=== PATIENT | male | born 1960 | race Caucasian/White ===

== ENCOUNTER 2024-10-24 03:45 | Inpatient (IN) ==
[2024-10-24 05:12] LABS: Albumin Globulin Ratio 1.5 (0.9-2); Albumin Level 3.9 gm/dl (3.4-5.0); BUN Creatinine Ratio 11.6 (10-20); Bilirubin,Total 0.6 mg/dl (0.2-1.0); Calcium 8.6 mg/dl (8.6-10.3); Creatinine Clr Calc Pharmacy 69.8 ml/min; Globulin 2.6 gm/dl (2.5-4.0); Potassium 4.4 mmol/L (3.5-5.1)
[2024-10-24 05:45] LABS: Fibrinogen 261 mg/dl (184-400); Partial Thromboplastin Time 26 Seconds (21-31); Prothrombin Time 10.9 Seconds (9.0-12.0)
[2024-10-24 05:47] LABS: Hematocrit (blood only) 37.2 % (42.0-52.0); Hemoglobin 12.5 g/dl (14.0-18.0); Mean Corpuscular Hemoglobin 28.5 pg (25.0-34.0); Mean Corpuscular Hgb Conc 33.6 g/dL (32.0-36.0); Mean Corpuscular Volume 84.9 fL (80.0-100.0); Platelet Count 1 K/uL (130-400); RDW Coefficient of Variation 14.5 % (11.5-14.5); RDW Standard Deviation 45.1 fL (36.4-46.3); Red Blood Count 4.38 M/uL (4.70-6.10); White Blood Count 4.49 K/ul (4.8-10.8)
[2024-10-24 06:03] LABS: Basophils # (auto) 0.06 K/uL (0.00-0.20); Basophils % (auto) 1.3 %; Eosinophils # (auto) 0.44 K/uL (0.00-0.50); Eosinophils % (auto) 9.8 %; Immature Granulocytes # (auto) 0.01 K/uL (0.01-0.20); Immature Granulocytes % (auto) 0.2 %; Lymphocytes # (auto) 0.71 K/uL (1.20-3.40); Lymphocytes % (auto) 15.8 %; Monocytes # (auto) 0.59 K/uL (0.11-0.59); Monocytes % (auto) 13.1 %; Neutrophils # (auto) 2.68 K/uL (1.40-6.50); Neutrophils % (auto) 59.8 %; Platelet Estimate Signific. Decreased (Normal); RBC Morphology Unremarkable
[2024-10-24 06:13] LABS: Magnesium 1.5 mg/dl (1.7-2.4); Total Protein 6.5 gm/dl (6.0-8.3); Troponin I High Sensitivity 7.4 pg/ml (0-20)
--- NOTE | 2024-10-24 06:55 | History & Physical Report ---
Date of Service October 24, 2024 Assessment & Plan (1) Thrombocytopenia: (2) Pancytopenia: (3) Diabetes mellitus: (4) Factor V Leiden mutation: (5) COPD (chronic obstructive pulmonary disease): (6) Benign prostatic hyperplasia (BPH) with urinary urgency: Plan 64yo male with history of Factor V Leiden on Apixaban anticoagulation, DM, COPD and BPH presenting with 4 days of progressive petechial rash and purpuric lesions in mouth with mucosal bleeding. Patient with pancytopenia - WBC=4.49, Hgb=12.5, Hct=37.2 normochromic/normocytic and Platelets = 1. No recent illness or vaccinations. He does take Omeprazole and was recently started on Ozempic. Patient with documented history of Lupus but denies having this. Differential diagnosis to include auto-immune disorder, ITP, tick-borne illness, medication effects, malignancy. #Thrombocytopenia - Platelets=1, mucosal bleeding -Admit to medical -Obtain peripheral blood smear -Obtain QUIRINO with reflex pattern. Consider adding complement levels, ESR, CRP if Lupus suspected -Hematology consultation appreciated -Patient has been consented for transfusion, no products ordered at this time #Pancytopenia - patient with leukopenia and anemia as well -Peripheral smear -Hematology consultation appreciated #Diabetes - blood sugar presently 127. Patient is on Metformin as well as Ozempic recently started to aid weight loss -Hold Metformin and Ozempic -Lantus 7u BID with ISS #Factor V Leiden - patient on Apixaban anticoagulation -Hold Apixaban for now given increased bleeding risk with thrombocytopenia #COPD - no cough, SOB or wheeze -Continue Trelegy daily #BPH - chronic -Flomax 0.4mg po daily F/E/N - Saline lock, Mg repletion x 2gm IV ordered, CC diet as tolerated Ppx - SCDs Code - Full Dispo - Admit to medical for ongoing workup and treatment History of Present Illness Chief Complaint: rash Primary Care Provider: Brandon Oakes Twin Reyes is a 64yo male with history of ulcerative colitis, remote history of colon cancer s/p surgery, prior PE and Factor V Leiden on Eliquis anticoagulation presenting with petechial rash that began 4 days ago. He noted petechia which began on bilateral ankles and progressed up his legs, thighs and onto his back and abdomen. Also with purpura in his mouth on tongue with mucosal bleeding. Patient additionally complaining of fatigue and chills. He had a small amount of bright red blood in his stool. Otherwise he denies fever, headache, chest pain, palpitations, cough, SOB, abdominal pain, nausea, vomiting, diarrhea. Denies recent illness, flu-like symptoms, tick bites. No recent hospitalizations or exposure to heparin or heparin products. Aside from his Factor V Leiden mutation, no personal or familial history of thrombocytopenia or blood disorders. He has a diagnosis of Lupus on his chart but denies having this. No additional complaints at this time. In the ER patient is afebrile, HD stable, non-toxic in appearance Allergies Allergy/AdvReac Type Severity Reaction Status Date / Time Cipro Allergy Intermediate renal Verified 05/05/16 19:12 failure ciprofloxacin Allergy Intermediate renal Verified 04/17/21 09:29 failure metronidazole Allergy Intermediate renal Verified 04/17/21 09:29 failure Flagyl TABS Allergy Uncoded 04/17/21 09:29 Home Medications Medication Instructions Recorded Confirmed Type albuterol sulfate 1.25 mg/3 mL mg inhalation 08/17/19 04/17/21 History solution for nebulization apixaban 5 mg tablet 5 mg PO DAILY 08/17/19 10/24/24 History beclomethasone dipropionate 40 1 puffs inhalation BID 08/17/19 04/17/21 History mcg/actuation HFA breath activated aerosol (Qvar RediHaler) ipratropium 0.5 mg-albuterol 3 mg ml inhalation 08/17/19 04/17/21 History (2.5 mg base)/3 mL nebulization soln losartan 25 mg tablet 25 mg PO DAILY 08/17/19 10/24/24 History metformin 500 mg tablet 500 mg PO DAILY 08/17/19 10/24/24 History mometasone-formoterol HFA 200 inhalation 08/17/19 04/17/21 History mcg-5 mcg/actuation aerosol inhaler montelukast 10 mg tablet 10 mg PO DAILY 08/17/19 10/24/24 History omeprazole 40 mg capsule,delayed 40 mg PO DAILY 08/17/19 10/24/24 History release tamsulosin 0.4 mg capsule 0.4 mg PO DAILY #90 caps 04/17/21 10/24/24 Rx fluticasone fur. 100 mcg-umeclid 1 inh inhalation DAILY 10/24/24 10/24/24 History 62.5 mcg-vilant 25 mcg inhalat.powder (Trelegy Ellipta) semaglutide 0.25 mg or 0.5 mg (2 0.5 mg subcut WK 10/24/24 10/24/24 History mg/3 mL) subcutaneous pen injector (Ozempic) trazodone 50 mg tablet 50 mg PO HS PRN Insomnia 10/24/24 10/24/24 History Past Med/Surg History Problem List (Updated 10/24/24 @ 06:45 by Henny Chung DO) Thrombocytopenia Pancytopenia Benign prostatic hyperplasia (BPH) with urinary urgency Asthma (Acute) Cough (Acute) DVT (deep venous thrombosis) (Acute) Diabetes mellitus (Acute) Elevated PSA (Acute) Factor V Leiden mutation (Acute) GERD (gastroesophageal reflux disease) (Acute) Left ventricular dysfunction (Acute) Lupus (Acute) Pulmonary embolism (Acute) Restless legs syndrome (Acute) Wheezing (Acute) COPD exacerbation (Acute) COPD (chronic obstructive pulmonary disease) (Chronic) Medical History (Updated 10/24/24 @ 06:45 by Henny Chung DO) Ulcerative colitis Myocardial infarction Colon cancer Kidney disease Surgical History History of knee surgery History of surgery "ileal pouch-anal anastomosis" Hx of cholecystectomy Hx of colonoscopy History of colon surgery Family History Other No pertinent family history Social History Smoking Status: Never smoker Tobacco Type: Smokeless Tobacco (Dip or Chew) Hx Alcohol Use: Yes Preferred Language: Lithuanian marital status: Feels Safe at Home: Yes Review of Systems Review of Systems: All systems reviewed & are unremarkable except as noted in HPI & below Physical Exam Physical Exam: General: patient resting comfortably, NAD, non-toxic in appearance, AA&O x 4 Skin: warm, dry, intact, petechial rash on bilateral LE, thighs and trunk HEENT: NC/AT, PERRL, EOMI, anicteric sclera, conjunctiva without injection, external ear normal to inspection and nontender, nares patent, moist mucus memb ranes, dentition intact, purpuric lesion on left lateral tongue, neck supple, trachea midline, no LAD, no thyromegaly, no JVD Heart: +S1/S2, regular, no m/r/g Lungs: equal air entry bilaterally, no rales/rhonchi/wheezes Abd: +BS, soft, NT/ND, no masses/organomegaly/ascites Ext: warm, 2+ pulses in UE/LE bilaterally, no clubbing/cyanosis or edema Neuro: nonfocal, patient AA&O x 4, speech intact, no facial droop, moving all extremities on command with equal strength 5/5 Results & Data Results & Data Vital Signs (Past 12 Hours) Vital Signs Pulse Resp BP Pulse Ox O2 Del Method 10/24/24 06:03 65 20 131/93 95 Room Air 10/24/24 05:20 76 10/24/24 05:16 72 20 132/87 10/24/24 04:05 74 18 127/79 96 Room Air Laboratory Results Laboratory Results WBC 4.49 K/ul (4.8-10.8) L 10/24/24 04:34 RBC 4.38 M/uL (4.70-6.10) L 10/24/24 04:34 Hgb 12.5 g/dl (14.0-18.0) L 10/24/24 04:34 Hct 37.2 % (42.0-52.0) L 10/24/24 04:34 MCV 84.9 fL (80.0-100.0) 10/24/24 04:34 MCH 28.5 pg (25.0-34.0) 10/24/24 04:34 MCHC 33.6 g/dL (32.0-36.0) 10/24/24 04:34 RDW Std Deviation 45.1 fL (36.4-46.3) 10/24/24 04:34 RDW Coeff of Roberto 14.5 % (11.5-14.5) 10/24/24 04:34 Plt Count 1 K/uL (130-400) L* 10/24/24 04:34 Immature Gran % (Auto) 0.2 % 10/24/24 04:34 Neut % (Auto) 59.8 % 10/24/24 04:34 Lymph % (Auto) 15.8 % 10/24/24 04:34 [place] % (Auto) 13.1 % 10/24/24 04:34 Eos % (Auto) 9.8 % 10/24/24 04:34 Baso % (Auto) 1.3 % 10/24/24 04:34 Neut # (Auto) 2.68 K/uL (1.40-6.50) 10/24/24 04:34 Lymph # (Auto) 0.71 K/uL (1.20-3.40) L 10/24/24 04:34 [place] # (Auto) 0.59 K/uL (0.11-0.59) 10/24/24 04:34 Eos # (Auto) 0.44 K/uL (0.00-0.50) 10/24/24 04:34 Baso # (Auto) 0.06 K/uL (0.00-0.20) 10/24/24 04:34 Immature Gran # (Auto) 0.01 K/uL (0.01-0.20) 10/24/24 04:34 Platelet Estimate Signific. Decreased (Normal) L 10/24/24 04:34 RBC Morphology Unremarkable 10/24/24 04:34 PT 10.9 Seconds (9.0-12.0) 10/24/24 04:59 INR 1.0 (0.9-1.1) 10/24/24 04:59 APTT 26 Seconds (21-31) 10/24/24 04:59 PTT Ratio 1.0 10/24/24 04:59 Fibrinogen 261 mg/dl (184-400) 10/24/24 04:59 Sodium 133 mmol/L (136-145) L 10/24/24 04:34 Potassium 4.4 mmol/L (3.5-5.1) 10/24/24 04:34 Chloride 104 mmol/L (98-107) 10/24/24 04:34 Carbon Dioxide 24 mmol/L (21-32) 10/24/24 04:34 Anion Gap 5 (3-11) 10/24/24 04:34 BUN 14 mg/dl (6-23) 10/24/24 04:34 Creatinine 1.21 mg/dl (0.6-1.4) 10/24/24 04:34 Est Cr Clr Drug Dosing 69.8 ml/min 10/24/24 04:34 eGFR 66.03 10/24/24 04:34 BUN/Creatinine Ratio 11.6 (10-20) 10/24/24 04:34 Glucose 127 mg/dl (70-99(Fasting)) H 10/24/24 04:34 Calcium 8.6 mg/dl (8.6-10.3) 10/24/24 04:34 Magnesium 1.5 mg/dl (1.7-2.4) L 10/24/24 04:34 Total Bilirubin 0.6 mg/dl (0.2-1.0) 10/24/24 04:34 AST 21 U/L (13-39) 10/24/24 04:34 ALT 15 U/L (7-52) 10/24/24 04:34 Alkaline Phosphatase 87 U/L (34-104) 10/24/24 04:34 Troponin I High Sens 7.4 pg/ml (0-20) 10/24/24 04:34 Total Protein 6.5 gm/dl (6.0-8.3) 10/24/24 04:34 Albumin 3.9 gm/dl (3.4-5.0) 10/24/24 04:34 Globulin 2.6 gm/dl (2.5-4.0) 10/24/24 04:34 Albumin/Globulin Ratio 1.5 (0.9-2) 10/24/24 04:34 Lyme Disease Screen Negative (Negative) 10/24/24 04:59 Blood Type O Positive 10/24/24 04:59 Antibody Screen NEGATIVE 10/24/24 04:59 Code Status & VTE Plan VTE Prophylaxis Plan VTE Prophylaxis will be ordered: Yes PG Care Time/CCT Total # of Minutes Spent Total Time Spent with Patient: Total time spent is greater than 50% in coordination of care (as documented) at patient's floor/unit and/or counseling patient: Coding Level of Care Code 79663 INT INP/OBS CARE 3/75MIN Diagnoses Thrombocytopenia D69.6 Pancytopenia D61.818 Diabetes mellitus E11.9 Factor V Leiden mutation D68.51 COPD (chronic obstructive pulmonary disease) J44.9 Benign prostatic hyperplasia (BPH) with urinary urgency N40.1; R39.15
[2024-10-24] MEDS: PANTOprazole 40 MG/10 ML SYR IV SCH (09:09)
[2024-10-24] MEDS ORDERED: ACETAMINOPHEN 325 MG TAB PO PRN (09:31)
[2024-10-24] MEDS ORDERED: DEXTROSE 50% 50 ML SYRINGE IV PRN (09:31)
[2024-10-24] MEDS ORDERED: traZODone HCL 50 MG TAB PO PRN (09:31)
[2024-10-24] MEDS ORDERED: NON-FORMULARY MEDICATION (Fluticasone-Umeclidin-Vilanter [Trelegy Ellipta] 100-62.5-25 mcg INH SCH (09:31)
[2024-10-24] MEDS ORDERED: GLUCAGON FOR INJ 1 MG VIAL SQ PRN (09:31)
[2024-10-24] MEDS ORDERED: ONDANSETRON INJ 2 MG/ML 2 ML VIAL IV PRN (09:31)
[2024-10-24] MEDS ORDERED: CARBOHYDRATES FOR HYPOGLYCEMIA PO PRN (09:31)
[2024-10-24] MEDS ORDERED: GLUCOSE 10 TAB/TUBE PO PRN (09:31)
[2024-10-24] MEDS ORDERED: GLUCOSE 40% GEL 15 GM TUBE PO PRN (09:31)
--- NOTE | 2024-10-24 09:48 | Electrocardiogram Report ---
Test Reason : Blood Pressure : */* mmHG Vent. Rate : 62 BPM Atrial Rate : 62 BPM P-R Int : 198 ms QRS Dur : 118 ms QT Int : 416 ms P-R-T Axes : 45 -46 -3 degrees QTcB Int : 422 ms Normal sinus rhythm Left anterior fascicular block Left ventricular hypertrophy with QRS widening Nonspecific T wave abnormality Inferior leads Abnormal ECG When compared with ECG of 05-May-2016 18:55, Premature ventricular complexes are no longer Present T wave inversion now evident in Inferior leads Confirmed by Satish Judd ([id number]) on 10/24/2024 9:47:55 AM Referred By: REFERRED SELF Confirmed By: Satish Judd
[2024-10-24] MEDS: INSULIN ASPART PER UNIT CHARGE SC SCH (10:08)
[2024-10-24] MEDS: LANTUS PER UNIT CHARGE SQ SCH (10:08)
[2024-10-24] MEDS: LOSARTAN POTASSIUM 25 MG TAB PO SCH (10:09)
[2024-10-24] MEDS: TAMSULOSIN HCL 0.4 MG CAP PO SCH (10:09)
[2024-10-24] MEDS: MAGNESIUM SULFATE / D5W 1 GM/100 ML BAG IV SCH (10:11)
[2024-10-24] MEDS: UMECLIDINIUM/VILANTEROL 62.5/25MCG 7 PUFFS/INHALER INH SCH (10:19)
[2024-10-24] MEDS: FLUTICASONE FUROATE 100MCG 14 PUFFS/INHALER INH SCH (10:19)
[2024-10-24 10:37] LABS: Appearance Urine Clear (Clear); Bacteria Urine Automated None Seen (None Seen); Bilirubin Urine Negative (Negative); Blood Urine 3+ (Negative); Cast Urine Automated 0-2 /lpf (0-2); Color Urine Orange; Epithelial Cell Urine Auto 0-2 /hpf (0-2); Glucose Urine UA Negative (Negative); Ketones Urine Negative (Negative); Leukocyte Esterase Urine Negative (Negative); Nitrite Urine Negative (Negative); Protein Urine Negative (Negative); RBC Urine Automated >20 /hpf (0-2); Urobilinogen Urine Negative (Negative); WBC Urine Automated 0-5 /hpf (0-5); pH Urine 5.5 (4.5-7.5)
--- NOTE | 2024-10-24 13:02 | Hospitalist Progress Note ---
Date of Service October 24, 2024 Assessment & Plan (1) Thrombocytopenia: (2) Pancytopenia: (3) Diabetes mellitus: (4) Factor V Leiden mutation: (5) COPD (chronic obstructive pulmonary disease): (6) Benign prostatic hyperplasia (BPH) with urinary urgency: Plan 64yo male with history of Factor V Leiden on Apixaban anticoagulation, DM, COPD and BPH presenting with 4 days of progressive petechial rash and purpuric lesions in mouth with mucosal bleeding. Patient with pancytopenia. Thrombocytopenia 1. #Thrombocytopenia - Platelets=1, on admission, repeat today: 0 - Mucosa bleeding, rectal bleeding and hematuria -Differential diagnosis to include auto-immune disorder, ITP, tick-borne illness, medication effects, malignancy. - Peripheral blood smear - Normal, no signs of malignancy, no hemolysis - Pending QUIRINO with reflex pattern. Consider adding complement levels, ESR, CRP if Lupus suspected - Pending tick born illness testing, including rickettsia, babesiosis. Initial lyme screen was negative -pending haptoglobin, hepatitis panel -Hematology consultation appreciated -Patient has been consented for transfusion - 1 unit of platelets ordered today, will repeat cbc after - Watch for bleeding #Pancytopenia - patient with leukopenia and anemia as well -Peripheral smear -Hematology consultation appreciated #Diabetes - blood sugar presently 127. Patient is on Metformin as well as Ozempic recently started to aid weight loss -Hold Metformin and Ozempic -Lantus 7u BID with ISS #Factor V Leiden - patient on Apixaban anticoagulation -Hold Apixaban for now given increased bleeding risk with thrombocytopenia #COPD - no cough, SOB or wheeze -Continue Trelegy daily #BPH - chronic -Flomax 0.4mg po daily - Follow with urology F/E/N - Saline lock, Mg repletion x 2gm IV ordered, CC diet as tolerated VTE Ppx - SCDs Code - Full Admission and Anticipated Discharge Date Admission Date: October 24, 2024 Supervising Physician Co-Signing Physician Notes I personally examined the patient and verified [place] points of history and exam, discussed case, and agree with decision making and plan documented by Dr. Leif Bautista and Brandon Bautista [facility]. Patient is a 64-year-old male with history pertinent for colon cancer, ulcerative colitis, factor V Leiden on Eliquis, PE/DVT, type 2 diabetes, and COPD on admission for mucosal bleeding and petechial rash with severe thrombocytopenia. On exam patient appears comfortable, non diaphoretic, conjunctiva clear, mucosa hematoma, no cervical lymphadenopathy, non-labored breathing, lungs clear to auscultation bilaterally, no rales/rhonchi/wheezing, heart with regular rate and rhythm, no murmur appreciated, bowel sounds present and no tenderness in the abdomen, lower extremities without edema, diffuse petechial rash bilateral lower extremities and torso. VSS. Hematology consulted. Peripheral smear unremarkable. Coagulation labs normal. Tick borne panel pending. Transfusing platelets. Hematology consulted. Monitor closely. Subjective Twin Reyes is a 64yo male with history of ulcerative colitis, remote history of colon cancer s/p surgery, prior PE and Factor V Leiden on Eliquis anticoagulation presenting with petechial rash that began 4 days ago. He noted petechia which began on bilateral ankles and progressed up his legs, thighs and onto his back and abdomen. Also with purpura in his mouth on tongue with mucosal bleeding. Patient additionally complaining of fatigue and chills. He had a small amount of bright red blood in his stool. He denies fever, headache, chest pain, palpitations, cough, SOB, abdominal pain, nausea, vomiting, diarrhea. Denies recent illness, flu-like symptoms, tick bit es. No recent hospitalizations or exposure to heparin or heparin products. Aside from his Factor V Leiden mutation, no personal or familial history of thrombocytopenia or blood disorders. He has a diagnosis of Lupus on his chart but denies having this. Pt recently started Ozempic in July. No additional concerns at this time. Pt said that he feels overall fine. The only update today was that he begin bleeding from the head of his penis. He said that the bleeding is from within his urethra, not his bladder. Review of Systems Review of Systems: All systems reviewed & are unremarkable except as noted in Subjective Physical Exam Physical Exam: General: patient resting comfortably, NAD, non-toxic in appearance, AA&O x 4 Skin: warm, dry, intact, petechial rash on bilateral LE, thighs and trunk HEENT: NC/AT, PERRL, EOMI, anicteric sclera, conjunctiva without injection, external ear normal to inspection and nontender, nares patent, moist mucus membranes, dentition intact, purpuric lesion on left lateral tongue, neck supple, trachea midline, no LAD, no thyromegaly, no JVD Heart: +S1/S2, regular, no m/r/g Lungs: equal air entry bilaterally, no rales/rhonchi/wheezes Abd: +BS, soft, NT/ND, no masses/organomegaly/ascites Ext: warm, 2+ pulses in UE/LE bilaterally, no clubbing/cyanosis or edema Neuro: nonfocal, patient AA&O x 4, speech intact, no facial droop, moving all extremities on command with equal strength 5/5 Results & Data Results & Data Vital Signs (Past 12 Hours) Vital Signs Temp Pulse Pulse Pulse Resp BP BP 10/24/24 11:31 37.1 C 71 16 139/86 10/24/24 09:33 37 C 63 18 10/24/24 09:33 37 C 63 18 10/24/24 09:31 37 C 63 18 10/24/24 08:38 68 18 10/24/24 07:00 82 18 10/24/24 06:03 65 20 131/93 10/24/24 05:20 76 10/24/24 05:16 72 20 132/87 10/24/24 04:05 74 18 127/79 BP Pulse Ox O2 Del Method 10/24/24 11:31 96 Room Air 10/24/24 09:33 134/79 96 Room Air 10/24/24 09:33 134/79 96 Room Air 10/24/24 09:31 134/79 96 Room Air 10/24/24 08:38 121/78 95 Room Air 10/24/24 07:00 125/89 95 Room Air 10/24/24 06:03 95 Room Air 10/24/24 05:20 10/24/24 05:16 10/24/24 04:05 96 Room Air
[2024-10-24 14:00] LABS: Hematocrit (blood only) 36.6 % (42.0-52.0); Hemoglobin 12.1 g/dl (14.0-18.0); Mean Corpuscular Hemoglobin 28.4 pg (25.0-34.0); Mean Corpuscular Hgb Conc 33.1 g/dL (32.0-36.0); Mean Corpuscular Volume 85.9 fL (80.0-100.0); Platelet Count 0 K/uL (130-400); RDW Coefficient of Variation 14.6 % (11.5-14.5); RDW Standard Deviation 45.1 fL (36.4-46.3); Red Blood Count 4.26 M/uL (4.70-6.10); White Blood Count 4.05 K/ul (4.8-10.8)
[2024-10-24 14:01] LABS: Basophils # (auto) 0.05 K/uL (0.00-0.20); Basophils % (auto) 1.2 %; Eosinophils # (auto) 0.37 K/uL (0.00-0.50); Eosinophils % (auto) 9.1 %; Immature Granulocytes # (auto) 0.02 K/uL (0.01-0.20); Immature Granulocytes % (auto) 0.5 %; Lymphocytes # (auto) 0.71 K/uL (1.20-3.40); Lymphocytes % (auto) 17.5 %; Monocytes # (auto) 0.44 K/uL (0.11-0.59); Monocytes % (auto) 10.9 %; Neutrophils # (auto) 2.46 K/uL (1.40-6.50); Neutrophils % (auto) 60.8 %; Platelet Estimate Signific. Decreased (Normal)
[2024-10-24] MEDS ORDERED: SODIUM CHLORIDE 0.9% 100 ML IV PRN (14:24)
[2024-10-24] MEDS ORDERED: DEXAMETHASONE SOD INJ 4 MG/ML VIAL IV SCH (17:30)
[2024-10-24] MEDS ORDERED: IMMUNE GLOBULIN (HUMAN) SOLN IV SCH (17:30)
--- NOTE | 2024-10-24 18:01 | Oncology Consultation ---
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 daily., Transfuse platelets to maintain a platelet count greater than 10. Ch cecilia CBC daily. Continue to assess for bleeding Plan . Thank you for this interesting hematological consult. Hematology will continue to follow the patient make appropriate recommendations. History of Present Illness Reason for Consultation: Thrombocytopenia hematuria Attending Physician: Henny Chung DO History of Present Illness the patient is a very pleasant 64-year-old man who is been admitted to the hospital with severe thrombocytopenia. The patient has a platelet count of 1 on admission. Currently the patient started having some hematuria bleeding this morning. He has also slight anemia and leukopenia on admission. Hematology has been consulted to assist in management of this patient with severe thrombocytopenia which is most likely ITP. The patient does have a history of factor V Leiden is on apixaban for anticoagulation which has been held. Allergies Allergy/AdvReac Type Severity Reaction Status Date / Time Cipro Allergy Intermediate renal Verified 05/05/16 19:12 failure ciprofloxacin Allergy Intermediate renal Verified 04/17/21 09:29 failure metronidazole Allergy Intermediate renal Verified 10/24/24 14:28 failure Home Medications Medication Instructions Recorded Confirmed Type albuterol sulfate 1.25 mg/3 mL mg inhalation 08/17/19 04/17/21 History solution for nebulization apixaban 5 mg tablet 5 mg PO DAILY 08/17/19 10/24/24 History beclomethasone dipropionate 40 1 puffs inhalation BID 08/17/19 04/17/21 History mcg/actuation HFA breath activated aerosol (Qvar RediHaler) ipratropium 0.5 mg-albuterol 3 mg ml inhalation 08/17/19 04/17/21 History (2.5 mg base)/3 mL nebulization soln losartan 25 mg tablet 25 mg PO DAILY 08/17/19 10/24/24 History metformin 500 mg tablet 500 mg PO DAILY 08/17/19 10/24/24 History mometasone-formoterol HFA 200 inhalation 08/17/19 04/17/21 History mcg-5 mcg/actuation aerosol inhaler montelukast 10 mg tablet 10 mg PO DAILY 08/17/19 10/24/24 History omeprazole 40 mg capsule,delayed 40 mg PO DAILY 08/17/19 10/24/24 History release tamsulosin 0.4 mg capsule 0.4 mg PO DAILY #90 caps 04/17/21 10/24/24 Rx fluticasone fur. 100 mcg-umeclid 1 inh inhalation DAILY 10/24/24 10/24/24 History 62.5 mcg-vilant 25 mcg inhalat.powder (Trelegy Ellipta) semaglutide 0.25 mg or 0.5 mg (2 0.5 mg subcut WK 10/24/24 10/24/24 History mg/3 mL) subcutaneous pen injector (Ozempic) trazodone 50 mg tablet 50 mg PO HS PRN Insomnia 10/24/24 10/24/24 History Patient History Medical History (Updated 10/24/24 @ 06:45 by Henny Chung DO) Ulcerative colitis Myocardial infarction Colon cancer Kidney disease Surgical History History of knee surgery History of surgery "ileal pouch-anal anastomosis" Hx of cholecystectomy Hx of colonoscopy History of colon surgery Family History Other No pertinent family history Social History Smoking Status: Never smoker Tobacco Type: Smokeless Tobacco (Dip or Chew) Second Hand Exposure: No; Do You Dip or Chew Tobacco: Yes; Hx Alcohol Use: Yes Alcohol type: hard liquor Hx Substance Use: No Preferred Language: Jamaican Communication Ability: Effective Beliefs That Will Affect Care: None marital status: Current Living Situation: Spouse Current Living Situation Comment: Home w/ Feels Safe at Home: Yes Assistive Devices: None Review of Systems Review of Systems: All systems reviewed & are unremarkable except as noted in HPI & below Constitutional: as per Subjective / HPI Eyes: as per Subjective / HPI Ear, Nose, Mouth, Throat: as per Subjective / HPI Respiratory: as per Subjective / HPI Cardiovascular: as per Subjective / HPI Gastrointestinal: as per Subjective / HPI Genitourinary: + as per Subjective / HPI Musculoskeletal: as per Subjective / HPI Integumentary: as per Subjective / HPI Physical Exam Constitutional: WD/WN, vitals as above Eyes: PERRL, conjunctivae normal, anicteric sclerae ENMT: external ear and nose normal, oropharynx normal Neck: trachea midline, no thyromegaly Respiratory: normal respiratory effort, lungs clear to auscultation Cardiovascular: RRR, no murmur, no edema Gastrointestinal (Abdomen): normal bowel sounds, soft, nontender, no hepatosplenomegaly Musculoskeletal: no cyanosis or clubbing, extremities motor strength 5/5 Skin: no rashes, warm and dry Neurologic: patellar DTR's 2+ bilat, sensation intact Results & Data Vital Signs (Past 12 Hours) Vital Signs Temp Pulse Pulse Pulse Resp BP BP 10/24/24 17:41 36.6 C 77 16 132/84 10/24/24 16:41 36.7 C 70 18 150/79 H 10/24/24 16:20 36.7 C 67 16 147/87 H 10/24/24 16:11 36.5 C 68 18 137/83 10/24/24 15:56 36.6 C 68 18 135/80 10/24/24 15:36 36.6 C 69 16 149/85 H 10/24/24 11:31 37.1 C 71 16 139/86 10/24/24 09:33 37 C 63 18 10/24/24 09:33 37 C 63 18 10/24/24 09:31 37 C 63 18 10/24/24 08:38 68 18 10/24/24 07:00 82 18 10/24/24 06:03 65 20 131/93 BP Pulse Ox O2 Del Method 10/24/24 17:41 96 10/24/24 16:41 97 10/24/24 16:20 96 Room Air 10/24/24 16:11 96 10/24/24 15:56 95 10/24/24 15:36 97 10/24/24 11:31 96 Room Air 10/24/24 09:33 134/79 96 Room Air 10/24/24 09:33 134/79 96 Room Air 10/24/24 09:31 134/79 96 Room Air 10/24/24 08:38 121/78 95 Room Air 10/24/24 07:00 125/89 95 Room Air 10/24/24 06:03 95 Room Air
[2024-10-24] MEDS: dexAMETHasone 40 MG in DEXTROSE 5% 25 ML IV SCH (18:19)
[2024-10-24] MEDS: Octagam 10% IVIG 10 gram bottle IV SCH (19:50)
[2024-10-24] MEDS: Octagam 10% IVIG 20 gram bottle IV SCH (21:09)
--- NOTE | 2024-10-24 22:12 | Emergency Department Note ---
History of Present Illness General Chief complaint: Skin Problem Stated complaint: RASH, MOUTH SORES, BLOODY STOOL,LETHARGIC Time Seen by Provider: 10/24/24 04:25 History of Present Illness This is a 64-year-old male presenting to the emergency department for evaluation of rash that began 3 to 4 days ago. The patient states the rash primarily started on his ankles but has become more progressive and proximal. He now has dots on his thighs and arms. Patient has history of factor V with PE. He is on apixaban, and is taking his medication as prescribed. No recent travel history. No fevers or chills. He began having bruising in his mouth with a small amount of blood, prompting him to come to the ER. He does not have chest pain, chest tightness, shortness of breath, or abdominal pain. He rates his current discomfort a 4/10. Home Medications Medication Instructions Recorded Confirmed Type albuterol sulfate 1.25 mg/3 mL mg inhalation 08/17/19 04/17/21 History solution for nebulization apixaban 5 mg tablet 5 mg PO DAILY 08/17/19 10/24/24 History beclomethasone dipropionate 40 1 puffs inhalation BID 08/17/19 04/17/21 History mcg/actuation HFA breath activated aerosol (Qvar RediHaler) ipratropium 0.5 mg-albuterol 3 mg ml inhalation 08/17/19 04/17/21 History (2.5 mg base)/3 mL nebulization soln losartan 25 mg tablet 25 mg PO DAILY 08/17/19 10/24/24 History metformin 500 mg tablet 500 mg PO DAILY 08/17/19 10/24/24 History mometasone-formoterol HFA 200 inhalation 08/17/19 04/17/21 History mcg-5 mcg/actuation aerosol inhaler montelukast 10 mg tablet 10 mg PO DAILY 08/17/19 10/24/24 History omeprazole 40 mg capsule,delayed 40 mg PO DAILY 08/17/19 10/24/24 History release tamsulosin 0.4 mg capsule 0.4 mg PO DAILY #90 caps 04/17/21 10/24/24 Rx fluticasone fur. 100 mcg-umeclid 1 inh inhalation DAILY 10/24/24 10/24/24 History 62.5 mcg-vilant 25 mcg inhalat.powder (Trelegy Ellipta) semaglutide 0.25 mg or 0.5 mg (2 0.5 mg subcut WK 10/24/24 10/24/24 History mg/3 mL) subcutaneous pen injector (Ozempic) trazodone 50 mg tablet 50 mg PO HS PRN Insomnia 10/24/24 10/24/24 History Allergies Allergy/AdvReac Type Severity Reaction Status Date / Time Cipro Allergy Intermediate renal Verified 05/05/16 19:12 failure ciprofloxacin Allergy Intermediate renal Verified 04/17/21 09:29 failure metronidazole Allergy Intermediate renal Verified 10/24/24 14:28 failure Past Med/Surg History Problem List (Updated 10/25/24 @ 03:38 by Richard Dawkins PA-C) Thrombocytopenia (Acute) Pancytopenia Benign prostatic hyperplasia (BPH) with urinary urgency Asthma (Acute) Cough (Acute) DVT (deep venous thrombosis) (Acute) Diabetes mellitus (Acute) Elevated PSA (Acute) Factor V Leiden mutation (Acute) GERD (gastroesophageal reflux disease) (Acute) Left ventricular dysfunction (Acute) Lupus (Acute) Pulmonary embolism (Acute) Restless legs syndrome (Acute) Wheezing (Acute) COPD exacerbation (Acute) COPD (chronic obstructive pulmonary disease) (Chronic) Medical History (Updated 10/25/24 @ 03:38 by Richard Dawkins PA-C) Ulcerative colitis Myocardial infarction Colon cancer Kidney disease Surgical History History of knee surgery History of surgery "ileal pouch-anal anastomosis" Hx of cholecystectomy Hx of colonoscopy History of colon surgery Family History Other No pertinent family history Social History Smoking Status: Never smoker Tobacco Type: Smokeless Tobacco (Dip or Chew) Second Hand Exposure: No; Do You Dip or Chew Tobacco: Yes; Hx Alcohol Use: Yes Alcohol type: hard liquor Hx Substance Use: No Preferred Language: Belarusian Communication Ability: Effective Beliefs That Will Affect Care: None marital status: Current Living Situation: Spouse Current Living Situation Comment: Home w/ Feels Safe at Home: Yes Assistive Devices: None Review of Systems A total of 10 systems reviewed and were otherwise negative Physical Exam Vital Signs Vital Signs - 24 hr 10/24/24 04:05 10/24/24 05:16 10/24/24 05:20 Pulse Rate 74 72 76 Respiratory Rate 18 20 Respiratory Depth Normal Blood Pressure 127/79 132/87 Blood Pressure Mean 95 106 Pulse Oximetry 96 Oxygen Delivery Method Room Air Sepsis Recent Fever Within 48 Hours No Sepsis New/Unexplained Change in Mental Status No Sepsis Action Taken by Nursing No Action Required 10/24/24 06:03 Pulse Rate 65 Respiratory Rate 20 Respiratory Depth Blood Pressure 131/93 Blood Pressure Mean 105 Pulse Oximetry 95 Oxygen Delivery Method Room Air Sepsis Recent Fever Within 48 Hours Sepsis New/Unexplained Change in Mental Status Sepsis Action Taken by Nursing VITALS: Vitals are noted on the nurse's note and reviewed by myself. Vital signs stable. GENERAL: Well-developed, well-nourished, white male, who is in no acute distress and resting comfortably. Patient is cooperative with the examination. HEAD: Normocephalic atraumatic. EARS: External ear normal. External auditory canals clear, tympanic membranes pearly clark without erythema or effusion bilaterally. EYES: Pupils equal round and reactive to light and accommodation. Conjunctivae without injection, sclerae without icterus. Extraocular movements intact. NOSE: Patent, turbinates without inflammation or discharge. MOUTH: Mucous membranes moist. Bruising and scant blood noted in the oropharynx along the lines of the cheek and left side tongue. NECK: Supple without nuchal rigidity. No lymphadenopathy. No thyromegaly. Cervical spine is nontender. HEART: Regular rate and rhythm without murmurs gallops or rubs. LUNGS: Clear to auscultation bilaterally without wheezes, rales or rhonchi. No retractions or accessory muscle use. ABDOMEN: Positive normal bowel sounds x 4. Soft, nontender, without masses or organomegaly. No guarding or rebound tenderness. MUSCULOSKELETAL: No muscle atrophy, erythema, or edema noted. Full range of motion in all extremities. NEURO: Patient was alert and oriented to person place and time. CN II through XII grossly intact. SKIN: The skin was with diffuse petechial rash best appreciated on lower extremities Course Administered Medications Fluticasone Furoate (Fluticasone Furoate 100mcg 14 Puffs/Inhaler) 1 puffs INH DAILY FARRUKH Stop: 11/23/24 09:44 Last Admin: 04/02/25 10:19 Dose: 1 puffs Documented By: CARLIE Pantoprazole Sodium (Protonix) 40 mg in 10 mls @ 5 mls/min IV DAILY FARRUKH Stop: 11/23/24 08:59 Last Admin: 10/24/24 09:09 Dose: 5 mls/min Documented By: MARILYN Dexamethasone 40 mg/ Dextrose 35 mls @ 50 mls/hr IV DAILY FARRUKH Stop: 11/23/24 17:44 Last Infusion: 10/24/24 19:01 Dose: Infused Documented By: Admin: 10/24/24 18:19 Dose: 50 mls/hr Documented By: CARLIE Immune Globulin (Octagam 10%) 200 mls @ 53.4 mls/hr IV TODAY@1900,2000,2100,2200 FARRUKH; Protocol Stop: 10/27/24 01:45 Last Titration: 10/25/24 01:22 Dose: Infused Documented By: Admin: 10/25/24 00:35 Dose: 5.62 mg/kg/min, 300 mls/hr Documented By: Titration: 10/25/24 00:25 Dose: Infused Documented By: Admin: 10/24/24 23:37 Dose: 4.68 mg/kg/min, 250 mls/hr Documented By: Titration: 10/24/24 23:37 Dose: Infused Documented By: Titration: 10/24/24 23:02 Dose: 3.75 mg/kg/min, 200 mls/hr Documented By: Admin: 10/24/24 22:28 Dose: 2.81 mg/kg/min, 150 mls/hr Documented By: Titration: 10/24/24 22:28 Dose: Infused Documented By: Titration: 10/24/24 21:43 Dose: 1.87 mg/kg/min, 100 mls/hr Documented By: Admin: 10/24/24 21:09 Dose: 1 mg/kg/min, 53.4 mls/hr Documented By: BENJAMIN Immune Globulin (Octagam 10%) 100 mls @ 53.4 mls/hr IV TODAY@1800 FARRUKH; Protocol Stop: 10/26/24 19:53 Last Titration: 10/24/24 21:08 Dose: Infused Documented By: Titration: 10/24/24 20:36 Dose: 1.87 mg/kg/min, 100 mls/hr Documented By: Admin: 10/24/24 19:50 Dose: 1 mg/kg/min, 53.4 mls/hr Documented By: BENJAMIN Insulin Aspart (Insulin Aspart Per Unit Charge) 0 units SC ACHS FARRUKH Stop: 11/23/24 09:30 Last Admin: 10/24/24 21:10 Dose: Not Given Documented By: Admin: 10/24/24 16:32 Dose: Not Given Documented By: Admin: 10/24/24 12:51 Dose: Not Given Documented By: Admin: 10/24/24 10:08 Dose: 6 units Documented By: CARLIE Co-signed By: CHUNG Insulin Glargine (Lantus Per Unit Charge) 7 units SQ BID FARRUKH Stop: 11/23/24 09:30 Last Admin: 10/24/24 21:10 Dose: Not Given Documented By: Admin: 10/24/24 10:08 Dose: 7 units Documented By: CARLIE Co-signed By: CHUNG Losartan Potassium (Losartan Potassium 25 Mg Tab) 25 mg PO DAILY FARRUKH Stop: 11/23/24 09:30 Last Admin: 10/24/24 10:09 Dose: 25 mg Documented By: CARLIE Tamsulosin HCl (Tamsulosin Hcl 0.4 Mg Cap) 0.4 mg PO DAILY FARRUKH Stop: 11/23/24 09:30 Last Admin: 10/24/24 10:09 Dose: 0.4 mg Documented By: CARLIE Umeclidinium/Vilanterol (Umeclidinium/Vilanterol 62.5/25mcg 7 Puffs/Inhaler) 1 puffs INH DAILY FARRUKH Stop: 11/23/24 09:44 Last Admin: 10/24/24 10:19 Dose: 1 puffs Documented By: CARLIE Discontinued Medications Magnesium Sulfate/Dextrose (Magnesium Sulfate / D5w) 1 gm in 100 mls @ 50 mls/hr IV Q2H FARRUKH Stop: 10/24/24 13:30 Last Infusion: 10/24/24 14:08 Dose: Infused Documented By: Admin: 10/24/24 12:16 Dose: 50 mls/hr Documented By: Infusion: 10/24/24 12:11 Dose: Infused Documented By: Admin: 10/24/24 10:11 Dose: 50 mls/hr Documented By: CARLIE Medical Decision Making Differential Diagnosis Differential diagnosis: Etiologies such as thrombocytopenia, sepsis, sepsis, UTI, pneumonia, bacteremia, metabolic process, electrolyte abnormalities, cardiac sources, intracerebral event, intra-abdominal process, toxicological process, neurologic process, as well as others were entertained. Laboratory Data 10/24/24 10:44 10/24/24 04:34 Lab Results 10/24/24 10/24/24 Range/Units 04:34 04:59 WBC 4.49 L (4.8-10.8) K/ul RBC 4.38 L (4.70-6.10) M/uL Hgb 12.5 L (14.0-18.0) g/dl Hct 37.2 L (42.0-52.0) % MCV 84.9 (80.0-100.0) fL MCH 28.5 (25.0-34.0) pg MCHC 33.6 (32.0-36.0) g/dL RDW Std Deviation 45.1 (36.4-46.3) fL RDW Coeff of Roberto 14.5 (11.5-14.5) % Plt Count 1 L* (130-400) K/uL Immature Gran % (Auto) 0.2 % Neut % (Auto) 59.8 % Lymph % (Auto) 15.8 % Bracken % (Auto) 13.1 % Eos % (Auto) 9.8 % Baso % (Auto) 1.3 % Neut # (Auto) 2.68 (1.40-6.50) K/uL Lymph # (Auto) 0.71 L (1.20-3.40) K/uL Bracken # (Auto) 0.59 (0.11-0.59) K/uL Eos # (Auto) 0.44 (0.00-0.50) K/uL Baso # (Auto) 0.06 (0.00-0.20) K/uL Immature Gran # (Auto) 0.01 (0.01-0.20) K/uL Platelet Estimate Signific. Decreased L (Normal) RBC Morphology Unremarkable Peripher Smr Path Cons PT 10.9 (9.0-12.0) Seconds INR 1.0 (0.9-1.1) APTT 26 (21-31) Seconds PTT Ratio 1.0 Fibrinogen 261 (184-400) mg/dl Sodium 133 L (136-145) mmol/L Potassium 4.4 (3.5-5.1) mmol/L Chloride 104 (98-107) mmol/L Carbon Dioxide 24 (21-32) mmol/L Anion Gap 5 (3-11) BUN 14 (6-23) mg/dl Creatinine 1.21 (0.6-1.4) mg/dl Est Cr Clr Drug Dosing 69.8 ml/min eGFR 66.03 BUN/Creatinine Ratio 11.6 (10-20) Glucose 127 H (70-99(Fasting)) mg/dl Calcium 8.6 (8.6-10.3) mg/dl Magnesium 1.5 L (1.7-2.4) mg/dl Total Bilirubin 0.6 (0.2-1.0) mg/dl AST 21 (13-39) U/L ALT 15 (7-52) U/L Alkaline Phosphatase 87 (34-104) U/L Troponin I High Sens 7.4 (0-20) pg/ml Total Protein 6.5 (6.0-8.3) gm/dl Albumin 3.9 (3.4-5.0) gm/dl Globulin 2.6 (2.5-4.0) gm/dl Albumin/Globulin Ratio 1.5 (0.9-2) Anaplasma Smear See Comment Babesia Smear See Comment Lyme Disease Screen Negative (Negative) Blood Type O Positive Antibody Screen NEGATIVE MDM Narrative Physical exam and history were performed. Nursing notes, EMR, and Medication List were personally reviewed. No social concerns were identified as barriers to patients care. History was provided by the Patient and who is at bedside. Patient appears to have rash primarily on his legs for the past few days. Rash is petechial and concerning for thrombocytopenia. IV access was established x 2. Blood work was obtained and sent to the lab. An order was placed for continuous cardiac monitoring. The monitor shows a rate of 84 with normal sinus rhythm. Patient's blood work is as above and was reviewed. He does not have a significantly elevated white blood cell count, gross anemia, or significant electrolyte imbalance. Patient's platelet count is 1, and this does correlate with suspicion for thrombocytopenia. Lyme is negative. PT/INR are normal. Type and screen was performed. Escalation of care was considered, and is felt to be necessary. Case was discussed with both my attending and with the on-call hospitalist team. Please see the hospitalist team dictation for further patient course, plan, disposition. The chart was completed utilizing [employer] Speech Voice Recognition Software. Grammatical errors, random word insertions, pronoun errors, and incomplete sentences are an occasional consequence of this system due to software limitations, ambient noise, and hardware issues. Any formal questions or concerns about the content, text, or information contained within the body of this dictation should be directly addressed to the provider for clarification. Impression & Plan Thrombocytopenia, Diabetes mellitus, Factor V Leiden mutation Discharge Plan Visit Data Chief Complaint: Skin Problem Stated Complaint: RASH, MOUTH SORES, BLOODY STOOL,LETHARGIC ED Provider: Alida Tavarez ED Midlevel Provider: Richard Dawkins Discharge Problem: Thrombocytopenia, Diabetes mellitus, Factor V Leiden mutation Patient Disposition: Admitted As Inpatient Discharge Instructions Interventions: ED Discharge Assessment Last Done: 10/24/24 09:07
[2024-10-25 06:50] LABS: Hematocrit (blood only) 37.6 % (42.0-52.0); Hemoglobin 12.7 g/dl (14.0-18.0); Mean Corpuscular Hemoglobin 28.5 pg (25.0-34.0); Mean Corpuscular Hgb Conc 33.8 g/dL (32.0-36.0); Mean Corpuscular Volume 84.3 fL (80.0-100.0); Platelet Count 3 K/uL (130-400); RDW Coefficient of Variation 13.9 % (11.5-14.5); RDW Standard Deviation 42.9 fL (36.4-46.3); Red Blood Count 4.46 M/uL (4.70-6.10); White Blood Count 4.69 K/ul (4.8-10.8)
[2024-10-25 06:56] LABS: Albumin Globulin Ratio 0.8 (0.9-2); Albumin Level 3.8 gm/dl (3.4-5.0); BUN Creatinine Ratio 13.2 (10-20); Bilirubin,Total 0.6 mg/dl (0.2-1.0); C Reactive Protein 0.92 mg/dl (0-0.5); Calcium 9.1 mg/dl (8.6-10.3); Creatinine Clr Calc Pharmacy 69.8 ml/min; Globulin 4.7 gm/dl (2.5-4.0); Magnesium 1.6 mg/dl (1.7-2.4); Potassium 4.5 mmol/L (3.5-5.1); Total Protein 8.5 gm/dl (6.0-8.3)
[2024-10-25 07:02] LABS: Immature Granulocytes # (auto) 0.02 K/uL (0.01-0.20); Immature Granulocytes % (auto) 0.4 %; Lymphocytes # (auto) 0.29 K/uL (1.20-3.40); Lymphocytes % (auto) 6.2 %; Monocytes # (auto) 0.07 K/uL (0.11-0.59); Monocytes % (auto) 1.5 %; Neutrophils # (auto) 4.31 K/uL (1.40-6.50); Neutrophils % (auto) 91.9 %
[2024-10-25 07:05] LABS: Prothrombin Time 11.2 Seconds (9.0-12.0)
[2024-10-25] MEDS ORDERED: SODIUM CHLORIDE 0.9% 100 ML IV PRN (07:08)
[2024-10-25] MEDS: MAGNESIUM SULFATE / D5W 1 GM/100 ML BAG IV SCH (08:45)
[2024-10-25 09:37] LABS: Hep B Surface Ag with confirm Negative (Negative)
[2024-10-25 09:42] LABS: Hep C Ab Rflx HepCQuant RNA Negative (Negative)
--- NOTE | 2024-10-25 10:06 | Hospitalist Progress Note ---
Date of Service October 25, 2024 Assessment & Plan (1) Thrombocytopenia: (2) Pancytopenia: (3) Diabetes mellitus: (4) Factor V Leiden mutation: (5) COPD (chronic obstructive pulmonary disease): (6) Benign prostatic hyperplasia (BPH) with urinary urgency: Plan 64yo male with history of Factor V Leiden on Apixaban anticoagulation, DM, COPD and BPH presenting with 4 days of progressive petechial rash and purpuric lesions in mouth with mucosal bleeding. Patient with pancytopenia. Thrombocytopenia 1. #Thrombocytopenia #ITP - Platelets=1, on admission, repeat today: 3 - Mucosa bleeding, rectal bleeding and hematuria on admission - Peripheral blood smear - Normal, no signs of malignancy, no hemolysis - Pending QUIRINO with reflex pattern - Pending tick born illness testing, including rickettsia, babesiosis. Initial lyme screen was negative -pending haptoglobin -hepatitis B and C negative -Hematology consultation appreciated -Patient has been consented for transfusion, s/p 2 units of platelets - Transfuse to keep platelets >10,000 - IVIg 1 mg/kg/day x 3 days - Dexamethasone 40 mg IV x 3 days - Anticipate discharge tomorrow after last dose of IVIG and steroids if no signs of bleeding - CBC daily #Pancytopenia - patient with leukopenia and anemia as well -Peripheral smear - normal -Hematology consultation appreciated - CBC daily #Diabetes - blood sugar presently 127. Patient is on Metformin as well as Ozempic recently started to aid weight loss -Hold Metformin and Ozempic -Lantus 7u BID with ISS #Factor V Leiden - patient on Apixaban anticoagulation -Hold Apixaban for now given increased bleeding risk with thrombocytopenia #COPD - no cough, SOB or wheeze -Continue Trelegy daily #BPH - chronic -Flomax 0.4mg po daily - Follow with urology F/E/N - Saline lock, CC diet as tolerated VTE Ppx - SCDs Code - Full Admission and Anticipated Discharge Date Admission Date: October 24, 2024 Supervising Physician Co-Signing Physician Notes I personally examined the patient and verified [place] points of history and exam, discussed case, and agree with decision making and plan documented by Dr. Leif Bautista and Brandon Bautista [facility]. Patient feeling great. Improvement of platelets this am, additional unit platelets provided. Continue IVIG and steroids. Subjective Pt said that he feels well today. The bleeding from his penis has stopped today. He says that he feels like he is getting better, mentioning that the rash on his legs looks better, his mouth ulcers are healing, and he is happy that his platelets are up. He requested that he gets a shower soon, as that would make himn feel better. Physical Exam Physical Exam: General: patient resting comfortably, NAD, non-toxic in appearance, AA&O x 4 Skin: warm, dry, intact, petechial rash on bilateral LE, thighs and trunk HEENT: NC/AT, PERRL, EOMI, anicteric sclera, conjunctiva without injection, external ear normal to inspection and nontender, nares patent, moist mucus membranes, dentition intact, the purpuric lesion on left lateral tongue has healed and is almost completely resolved, neck supple, trachea midline, no LAD, no thyromegaly, no JVD Heart: +S1/S2, regular, no m/r/g Lungs: equal air entry bilaterally, no rales/rhonchi/wheezes Abd: +BS, soft, NT/ND, no masses/organomegaly/ascites Ext: warm, 2+ pulses in UE/LE bilaterally, no clubbing/cyanosis or edema Neuro: nonfocal, patient AA&O x 4, speech intact, no facial droop, moving all extremities on command with equal strength 5/5 Results & Data Results & Data Vital Signs (Past 12 Hours) Vital Signs Temp Pulse Pulse Resp BP BP Pulse Ox 10/25/24 08:38 37.4 C 84 18 131/76 96 10/25/24 08:35 36.6 C 90 16 125/77 95 10/25/24 08:20 36.5 C 73 18 96 10/25/24 07:53 36.5 C 73 18 135/89 95 10/25/24 07:42 36.5 C 71 18 135/89 95 10/24/24 23:37 36.6 C 67 16 145/81 H 96 O2 Del Method 10/25/24 08:38 10/25/24 08:35 10/25/24 08:20 10/25/24 07:53 Room Air 10/25/24 07:42 10/24/24 23:37 Room Air Resident Activity Tracking Resident Involvement: Resident Care Provided Care Provided: Adult [facility]
[2024-10-25 23:10] VITALS: RESP 18
[2024-10-25 23:23] VITALS: TEMP 97.7
[2024-10-26 08:05] VITALS: PULSE 67; O2SAT 94
[2024-10-26 08:16] LABS: Hematocrit (blood only) 34.1 % (42.0-52.0); Hemoglobin 11.3 g/dl (14.0-18.0); Mean Corpuscular Hgb Conc 33.1 g/dL (32.0-36.0); Mean Corpuscular Volume 84.4 fL (80.0-100.0); Mean Platelet Volume 12.7 fL (9.4-12.4); Platelet Count 46 K/uL (130-400); RDW Coefficient of Variation 14.3 % (11.5-14.5); RDW Standard Deviation 44.2 fL (36.4-46.3); Red Blood Count 4.04 M/uL (4.70-6.10); White Blood Count 10.61 K/ul (4.8-10.8)
[2024-10-26] MEDS: POLYETHYLENE (MIRALAX) 17 GM PACK PO PRN (08:18)
[2024-10-26 08:26] LABS: BUN Creatinine Ratio 17.1 (10-20); Calcium 9.2 mg/dl (8.6-10.3); Creatinine Clr Calc Pharmacy 68.7 ml/min; Potassium 4.5 mmol/L (3.5-5.1)
[2024-10-26] MEDS: Octagam 10% IVIG 10 gram bottle IV SCH (09:30)
--- NOTE | 2024-10-26 09:49 | Discharge Summary ---
Date of Service October 26, 2024 Admission HPI Per Admitting Provider Twin Reyes is a 64yo male with history of ulcerative colitis, remote history of colon cancer s/p surgery, prior PE and Factor V Leiden on Eliquis anticoagulation presenting with petechial rash that began 4 days ago. He noted petechia which began on bilateral ankles and progressed up his legs, thighs and onto his back and abdomen. Also with purpura in his mouth on tongue with mucosal bleeding. Patient additionally complaining of fatigue and chills. He had a small amount of bright red blood in his stool. Otherwise he denies fever, headache, chest pain, palpitations, cough, SOB, abdominal pain, nausea, vomiting, diarrhea. Denies recent illness, flu-like symptoms, tick bites. No recent hospitalizations or exposure to heparin or heparin products. Aside from his Factor V Leiden mutation, no personal or familial history of thrombocytopenia or blood disorders. He has a diagnosis of Lupus on his chart but denies having this. No additional complaints at this time. In the ER patient is afebrile, HD stable, non-toxic in appearance Admission Exam Per Admitting Provider General: patient resting comfortably, NAD, non-toxic in appearance, AA&O x 4 Skin: warm, dry, intact, petechial rash on bilateral LE, thighs and trunk HEENT: NC/AT, PERRL, EOMI, anicteric sclera, conjunctiva without injection, external ear normal to inspection and nontender, nares patent, moist mucus membranes, dentition intact, purpuric lesion on left lateral tongue, neck supple, trachea midline, no LAD, no thyromegaly, no JVD Heart: +S1/S2, regular, no m/r/g Lungs: equal air entry bilaterally, no rales/rhonchi/wheezes Abd: +BS, soft, NT/ND, no masses/organomegaly/ascites Ext: warm, 2+ pulses in UE/LE bilaterally, no clubbing/cyanosis or edema Neuro: nonfocal, patient AA&O x 4, speech intact, no facial droop, moving all extremities on command with equal strength 5/5 Principal Diagnosis ITP Discharge Exam Constitutional: well appearing, no acute distress HEENT: normocephalic, no conjunctival injection, no bleeding noted CV: regular rhythm, regular rate, no murmur, no LE edema Respiratory: Clear to auscultation bilaterally. No rhonchi, wheezes, or crackles. No increased work of breathing MSK: no gross deformities noted Skin: warm, dry, petechial rash noted on bilateral LE Neuro: alert, oriented, no FND noted Discharge Data Allergies Allergy/AdvReac Type Severity Reaction Status Date / Time Cipro Allergy Intermediate renal Verified 05/05/16 19:12 failure ciprofloxacin Allergy Intermediate renal Verified 04/17/21 09:29 failure metronidazole Allergy Intermediate renal Verified 10/24/24 14:28 failure Consultations 10/24/24 05:55 ED Decision to Admit Stat 10/24/24 06:36 Consult Hematology Routine Hospital Course (1) Thrombocytopenia: (2) Pancytopenia: (3) Diabetes mellitus: (4) Factor V Leiden mutation: (5) COPD (chronic obstructive pulmonary disease): (6) Benign prostatic hyperplasia (BPH) with urinary urgency: Plan 64yo male with history of Factor V Leiden on Apixaban anticoagulation, DM, COPD and BPH presenting with 4 days of progressive petechial rash and purpuric lesions in mouth with mucosal bleeding. Patient with pancytopenia. Thrombocytopenia 1. Thrombocytopenia/ITP - Mucosa bleeding, rectal bleeding and hematuria on admission; bleeding resolved on discharge - Platelets 1 on admission; repeat 0; s/p 1 transfusion increased platelets to 3; s/p 2nd transfusion and IVIg x3 days and dexamethasone 40mg IV x3 days brought platelets to 46 - Peripheral blood smear; normal, no signs of malignancy, no hemolysis - Pending QUIRINO with reflex pattern, tick borne illness testing, including rickettsia, babesiosis; initial lyme screen was negative although low concern - haptoglobin WNL - hepatitis B and C negative - will discharge with prednisone steroid taper - repeat CBC/CMP on Tuesday, 10/29 with f/u with Dr. Mcgraw later that week - will hold eliquis until repeat CBC Pancytopenia - patient with leukopenia and anemia as well - peripheral smear - normal - plan as above Diabetes - resume home meds (metformin) but hold Ozempic; discuss further with PCP upon f/u Factor V Leiden - hold eliquis until repeat CBC 10/29 COPD - no cough, SOB or wheeze -Continue Trelegy daily BPH - chronic - Flomax 0.4mg po daily - Follow with urology Code: Full Dispo: home w/ heme f/u Total Time Total Time Spent Total Time Spent (In Minutes): as per attending attestation Discharge Plan Discharge Items Patient Disposition: Home - Self-Care Reason For Visit: PANCYTOPENIA, PURPURA/PETCHIAE Discharge Diagnosis: ITP Activity: Per Instructions section Non-emergency contact: Primary Care Provider and Oncologist Call non-emergency contact if: you have any medication questions and your symptoms worsen Follow-up/Referrals: Nirmal Mcgraw MD [Physician] - (Bloodwork scheduled 10/29 @ 11:[address] Mcgraw 10/31/24 at 0900) Brandon Oakes D.O. [Primary Care Provider] - 11/01/24 9:30 am Diet: Carb Consistent or DM2 Ambulatory Orders: Complete Blood Count no Diff (Routine) Timeframe: 20241029 Location: Determined by Patient Ordered By: Pari Briggs Comprehensive Metabolic Panel (Routine) Timeframe: 20241029 Location: Determined by Patient Ordered By: Pari Briggs Addtl Attending Provider Instructions: You were admitted to the hospital for bleeding and were found to have low platelets. You were treated with a medication called IVIg and steroids. You were also given 2 infusions of platelets. These therapies lead to an increase in your platelet count from 0 to 46 the day of discharge. Your bleeding had also stopped. A discharge summary will be sent to your primary care physician to ensure continuity of care. Please bring this discharge summary with you to your next office appointment so that your provider can review it at that time. Medications: Your medication list has been reviewed and reconciled upon discharge to ensure accuracy and continuity of care. An updated list of all your medications is included with your hospital discharge paperwork. Please review this list closely and make note of any changes to your medications. - You have been prescribed a steroid taper of prednisone 10 mg tablets. You should take 4 tablets for 4 days, 3 tablets for 3 days, 2 tablets for 2 days, and 1 tablet for 1 day. - You should NOT take your Eliquis until you follow up with Dr. Mcgraw and have repeat blood work on Tuesday, 10/29. Follow up appointments: - You should follow up with Dr. Mcgraw (supervisor crack off) next week. - Make a follow up appointment with your PCP within the next week. It is very important that you follow up with them shortly after discharge from the hospital. - Keep all of your follow up appointments as already scheduled. If you cannot make an appointment, notify your provider. CONTACT YOUR PRIMARY CARE PROVIDER if you experience any of the following: - Difficulty following your treatment plan - Difficulty taking any of your medications CALL 911 OR GO TO THE EMERGENCY DEPARTMENT if you experience any of the following: - Any signs of bleeding; nose bleeds, gum bleeding, blood in your stool or urine, etc - Sudden, severe abdominal pain or nausea/vomiting - Severe chest pain or chest pain that radiates to your jaw or arm - Sudden, severe shortness of breath or difficulty breathing Pending Studies at Discharge: No Stand-Alone Forms: My [facility] [employer], Smoking Cessation Medications and DC Order Prescriptions: New prednisone 10 mg tablet See Rx Instructions .ROUTE .COMPLEX Qty: 30 0RF Rx Instructions: Take 4 tablets for 4 days, 3 tablets for 3 days, 2 tablets for 2 days, and 1 tablet for 1 day Continued Qvar RediHaler 40 mcg/actuation HFA aerosol breath activated 1 puffs INH BID mometasone-formoterol 200-5 mcg/actuation HFA aerosol inhaler INH montelukast 10 mg tablet 10 mg PO DAILY losartan 25 mg tablet 25 mg PO DAILY omeprazole 40 mg capsule,delayed release(DR/EC) 40 mg PO DAILY albuterol sulfate 1.25 mg/3 mL solution for nebulization inhalation ipratropium-albuterol 0.5 mg-3 mg(2.5 mg base)/3 mL solution for nebulization INH metformin 500 mg tablet 500 mg PO DAILY tamsulosin 0.4 mg capsule 0.4 mg PO DAILY Qty: 90 3RF Rx Instructions: take at bedtime trazodone 50 mg tablet 50 mg PO HS PRN (Reason: Insomnia) Trelegy Ellipta 100-62.5-25 mcg blister with device 1 inh INHALATION DAILY Held apixaban 5 mg tablet 5 mg PO DAILY Hold Instructions: Hold until follow up with Dr. Mcgraw Ozempic 0.25 mg or 0.5 mg (2 mg/3 mL) pen injector 0.5 mg SUBCUT WK Hold Instructions: Hold until follow up with Dr. Mcgraw/your PCP Discharge Orders: Discharge Order (Routine); Ordered 10/26/24 Ordered By: Pari E. Smithbauer Admission Data Admit Date/Time: 10/24/24 06:36 Attending Provider: Abena Durant Admit Provider: Henny Chung Primary Care Provider: Brandon Oakes Other Providers: Nirmal Mcgraw; Henny Chung Other Interventions: Discharge Summary Assessment (RN) Last Done: 10/26/24 12:23 Supervising Physician Co-Signing Physician Notes I personally examined the patient and verified [place] points of history and exam, discussed case, and agree with decision making and plan documented by Dr. Briggs. Patient is a 64-year-old male with history pertinent for colon cancer, ulcerative colitis, factor V Leiden on Eliquis, PE/DVT, type 2 diabetes, and COPD on admission for mucosal bleeding and petechial rash with severe thrombocytopenia. Patient received 3 days of IVIG with dexamethasone and platelet transfusion. He will have labs checked on 10/29/2024 and follow-up with hematology to discuss restarting of apixaban. Total attending time 42 minutes. Resident Activity Tracking Resident Involvement: Resident Care Provided Care Provided: Adult Hospital Medicine
[2024-10-26] MEDS: Octagam 10% IVIG 20 gram bottle IV SCH (11:10)
[2024-10-26 12:24] VITALS: BP 159/90
[2024-10-26 15:53] LABS: Anti Nuclear Antibody Screen POSITIVE (NEGATIVE)
[2024-10-27 17:01] LABS: Hepatitis A Antibody IgM NON-REACTIVE (NON-REACTIVE); Hepatitis B Core Antibody IgM NON-REACTIVE (NON-REACTIVE)
[2024-10-27 17:48] LABS: Babesia microti DNA Not Detected (Not Detected)
== END 2024-10-26 15:55 | disposition home or self-care (01) | DRG 813 ==
LOC: SUATTDRO → ED 03:45 → SUATTDRO 06:36 → 2N 06:36 → 3N 10-25 23:19